=== PATIENT | female | born 1960 ===

== ENCOUNTER 2024-08-03 06:24 | Day surgery (SDC) | payer OTHER ==
[2024-07-30 11:24] VITALS: BP 150/83
[~2024-08-03] VITALS: Ht 154.9 cm; Wt 73.5 kg
[~2024-08-03 06:24] MED LIST: ATACAND32 MG PO; CARDURA1 MG PO; GLYCOTROL CAPS1 EACH PO; HYDRODIURIL12.5 MG PO; NIFEDIPINE20 MG PO; PLAVIX75 MG PO; SYNTHROID75 MCG PO; ZOCOR40 MG PO
[2024-08-03] MEDS ORDERED: CEFTRIAXONE SODIUM 2,000 MG VIAL ONE (07:38)
[2024-08-03] MEDS ORDERED: METRONIDAZOLE/SODIUM CHLORIDE 500 MG/100 ML PIGGYBACK IV ONE ×2 (07:38→09:15)
[2024-08-03] MEDS ORDERED: LIDOCAINE HCL 1%/EPINEPHRINE 20ML VIAL IJ ONE (08:41)
[2024-08-03] MEDS ORDERED: CEFTRIAXONE SODIUM 2,000 MG VIAL IV ONE (09:15)
[2024-08-03] MEDS ORDERED: BUPIVACAINE HCL 30 ML VIAL IV ONE (09:15)
[2024-08-03] MEDS ORDERED: ONDANSETRON HCL 2 MG/ML VIAL ONE (11:10)
== END 2024-08-03 13:20 | disposition home or self-care (01) ==
LOC: CIR.AMB 06:24
PROVIDERS: ATTEND Colon & Rectal Surgery
DX: R15.9 Full incontinence of feces (principal); R32 Unspecified urinary incontinence; I10 Essential (primary) hypertension; E03.8 Other specified hypothyroidism; J45.909 Unspecified asthma, uncomplicated; Z91.013 Allergy to seafood
CPT/HCPCS: 64581; 95971; C1778

== ENCOUNTER 2024-08-13 05:30 | Day surgery (SDC) | payer OTHER ==
[2024-07-30 12:56] VITALS: BP 150/83
[~2024-08-13] VITALS: Ht 154.9 cm; Wt 73.5 kg
[2024-08-13] MEDS ORDERED: CEFTRIAXONE SODIUM 2,000 MG VIAL ONE (06:41)
[2024-08-13] MEDS ORDERED: METRONIDAZOLE/SODIUM CHLORIDE 500 MG/100 ML PIGGYBACK IV ONE (06:42)
[2024-08-13] MEDS ORDERED: POVIDONE-IODINE 118 ML BOTT TOP ONE (06:59)
[2024-08-13] MEDS ORDERED: BUPIVACAINE HCL/Mpf 0.5% 10ML VIAL ONE (06:59)
[2024-08-13] MEDS ORDERED: LIDOCAINE HCL 1%/EPINEPHRINE 20ML VIAL IJ ONE (06:59)
== END 2024-08-13 11:30 | disposition home or self-care (01) ==
LOC: CIR.AMB 05:30
PROVIDERS: ATTEND Colon & Rectal Surgery
DX: R15.9 Full incontinence of feces (principal); R32 Unspecified urinary incontinence; Z88.2 Allergy status to sulfonamides
CPT/HCPCS: 64590; 95971; C1767